=== PATIENT | male | born 1955 | race Caucasian/White ===

== ENCOUNTER 2017-04-28 09:01 | Day surgery (SDC) | payer MEDICAID ==
[2017-04-25 13:50] VITALS: BMI 15.6
[2017-04-28 09:52] VITALS: RESP 18; O2SAT 95
--- NOTE | 2017-04-28 10:47 | CP.SDSHP ---
Same Day Surgery H & P - History Proposed Procedure: US guided biopsy of left parotid mass. Pre-Op Diagnosis: left parotid mass. - Allergies Allergies: Allergies No Known Allergies Allergy (Verified 04/25/17 13:50) - Physical Exam Vital Signs: Vital Signs 04/28/17 09:18 Temperature 97.8 F Pulse Rate 90 Respiratory 18 Rate Blood Pressure 163/92 H O2 Sat by Pulse 95 Oximetry - Impression Impression: Pt with a 4 cm left parotid mass. PLAN US guided biopsy of left parotid mass. Pt. Evaluated Today:Candidate for Anesthesia & Procedure: No Short Stay Discharge - Short Stay Discharge Admitting Diagnosis/Reason for Visit: PARATOID MASS Disposition: HOME/ ROUTINE
--- NOTE | 2017-04-28 10:48 | PCM.SURG1 ---
Surgeon's Initial Post Op Note - Surgeon's Notes Surgeon: Nnamdi Torres MD Taper Operator: NONE Type of Anesthesia: Local Pre-Operative Diagnosis: Left parotid mass Operative Findings: Large heterogenous left parotid mass. Post-Operative Diagnosis: Left parotid mass Operation Performed: US guided core biopsy of left paroitd mass. Specimen/Specimens Removed: 20 gauge core 4 Estimated Blood Loss: EBL {In ML}: 1 Blood Products Given: N/A Drains Used: No Drains Post-Op Condition: Good Date of Surgery/Procedure: 04/28/17 Time of Surgery/Procedure: 10:45
--- NOTE | 2017-04-28 10:59 | US ---
PROCEDURE: DATE OF PROCEDURE: 04/28/2017 PROCEDURE: 1. Ultrasound-guided core biopsy left parotid mass 2. Ultrasound guidance for procedure, CPT 68032 Medications: 3cc 1 percent lidocaine HISTORY: Left parotid mass TECHNIQUE: Following informed consent, the left parotid area was marked. Procedure time out was called and the parotid area was prepped and draped in the usual sterile manner. A limited ultrasound was performed of the left parotid which shows a large complex left parotid mass measuring 4.2 centimeters. Ultrasound-guided core biopsy is performed. Under direct ultrasound guidance, 20 gauge core biopsy needle was advanced percutaneously into the mass. Upon confirmation of needle position, four 20 gauge core specimens were obtained and sent for routine histology and flow cytometry. A post biopsy ultrasound showed no hematoma. IMPRESSION: Ultrasound-guided core biopsy of left parotid mass.
[2017-04-28 11:19] VITALS: BP 169/93; PULSE 72; TEMP 97
== END 2017-04-28 11:20 | disposition home or self-care (01) ==
LOC: C.SPRAD 09:01
PROVIDERS: ATTEND Radiology Vascular & Interventional Radiology
DX: D11.0 Benign neoplasm of parotid gland (principal)